=== PATIENT | female | born 1930 | race Caucasian/White ===

== ENCOUNTER → 2018-07-10 | Outpatient (CLI) | payer MEDICARE, BC ==
[~2018-07-10] MED LIST: LORTAB 5/500 501 TAB PO; NO HOME MEDICATIONS; PEPCID 20MG TAB20 MG PO; PREDNISONE1 MG PO; TOPROL XL 25MG25 MG PO; ZANTAC 7575 MG PO
== END ==
LOC: COL.VAS 13:00
DX: M79.89 Other specified soft tissue disorders (principal)

== ENCOUNTER → 2018-07-26 | Outpatient (CLI) | payer MEDICARE, BC | LOC: COL.RAD 12:38 | DX: Z13.6 Encounter for screening for cardiovascular disorders (principal); M79.89 Other specified soft tissue disorders ==

== ENCOUNTER → 2020-07-24 | Outpatient (CLI) | payer MEDICARE, BC | LOC: COL.RAD 08:08 | DX: K62.5 Hemorrhage of anus and rectum (principal); R63.4 Abnormal weight loss; Z90.49 Acquired absence of other specified parts of digestive tract | CPT/HCPCS: Q9967 ==